=== PATIENT | female | born 1990 | race Caucasian/White ===

== ENCOUNTER 2018-09-17 19:25 | Emergency (ER) | payer BC ==
[~2018-09-17] VITALS: Ht 162.6 cm; Wt 61.4 kg
[2018-09-17 19:30] VITALS: BP 134/94; TEMP 98.8
[2018-09-17 19:58] LABS: COLLECTION METHOD CLEAN CATCH
[2018-09-17 20:05] LABS: BASO % 0.3 % (0.0-2.0); EOS # 0.3 (0.0-0.7); GRAN # 10.8 (1.4-6.5); GRAN % 84.9 % (42.2-75.2); HEMATOCRIT 43.1 % (37.0-47.0); HEMOGLOBIN 16.1 g/dl (12.5-16.0); LYMPH # 0.9 (1.2-3.4); LYMPH % 7.3 % (20.0-51.0); MEAN CELL VOLUME 89 fl (80.0-100.0); MEAN CORPUSCULAR HEMOGLOBIN 33 pg (27.0-31.0); MEAN CORPUSCULAR HGB CONC 37 g/dl (33.0-37.0); MEAN PLATELET VOLUME 9.4 fl (7.4-10.4); MONO # 0.7 (0.1-0.6); MONO % 5.2 % (1.7-9.3); PLATELET COUNT 167 K/mm3 (130-400); RED BLOOD COUNT 4.82 M/mm3 (4.10-5.30); REDCELL DISTRIBUTION WIDTH-CV 11.1 % (11.5-14.5)
[2018-09-17 20:06] LABS: MUCOUS Present /lpf; PH 5 (5-8); SQUAMOUS EPITHELIAL 0-2 /hpf; URINE APPEARANCE Clear; URINE BACTERIA None Seen /hpf; URINE BILIRUBIN Negative (NEGATIVE); URINE BLOOD Negative (NEGATIVE); URINE COLOR Yellow; URINE GLUCOSE Negative (NEGATIVE); URINE KETONE Negative (NEGATIVE); URINE LEUKOCYTE ESTERASE Negative (NEGATIVE); URINE NITRATE Negative (NEGATIVE); URINE PROTEIN(semi-quant) Negative (NEGATIVE); URINE RBC 0-2 /hpf; URINE UROBILINOGEN Negative (NEGATIVE)
[2018-09-17] MEDS ORDERED: PROTONIX 40MG T40 MG PO (20:07)
[2018-09-17] MEDS ORDERED: PROZAC 20MG20 MG (20:08)
[2018-09-17 20:15] LABS: ALANINE AMINOTRANSFERASE 26 U/L (9-52); ALBUMIN 4.9 gm/dL (3.5-5.0); ALKALINE PHOSPHATASE 61 U/L (50-136); ANION GAP 14 mmol/L (7-16); AST,SGOT 25 U/L (15-37); BILIRUBIN,TOTAL 1.6 mg/dL (0.0-1.0); BLOOD UREA NITROGEN 20 mg/dL (7-17); CALCIUM 8.9 mg/dL (8.4-10.2); CARBON DIOXIDE 23 mmol/L (22-30); CHLORIDE 102 mmol/L (98-107); CREATININE, serum 0.62 (0.52-1.25); GLUCOSE 89 mg/dL (74-106); LIPASE 50 U/L (23-300); POTASSIUM 3.7 mmol/L (3.4-5.0); SODIUM 140 mmol/L (137-145); TOTAL PROTEIN 7.8 gm/dL (6.4-8.2)
[2018-09-17 20:28] LABS: C-REACTIVE PROTEIN < 0.5 mg/dL (0.0-0.9)
[2018-09-17] MEDS ORDERED: NORCO 325 MG-51 TAB PO (22:43)
[2018-09-17] MEDS ORDERED: CARAFATE 1GM1 G PO (22:43)
[2018-09-17] MEDS ORDERED: ZOFRAN ODT4 MG PO (22:43)
[2018-09-17 23:00] VITALS: PULSE 95
== END 2018-09-17 23:05 | disposition home or self-care (01) ==
LOC: COL.ER 19:25
PROVIDERS: Nurse Practitioner
DX: R10.11 Right upper quadrant pain (principal); F17.210 Nicotine dependence, cigarettes, uncomplicated; Z98.890 Other specified postprocedural states
CPT/HCPCS: J1170; J1885; J2405; J7030; Q9967